=== PATIENT | female | born 1970 | race Caucasian/White ===

== ENCOUNTER 2016-09-17 13:14 | Emergency (ER) | payer OTHER ==
[~2016-09-17] VITALS: Ht 160 cm; Wt 82.5 kg
[~2016-09-17 13:14] MED LIST: ALBU8.5H3 INH; CETI10CA PO; CIPR500T4 PO; CYCL-319 PO; D-ME473S2 PO; DICY20TA59 PO; GUAI118L94 PO; HYDR-3498 PO; HYDR-902 PO; IBUP-1542 PO; IBUP800T25 PO; LORA1TAB PO; PHEN177S43 MT; PRED20TA PO; TRAM50TA2 PO
[2016-09-17 13:20] VITALS: Ht 160 cm; Wt 82.5 kg
[2016-09-17] MEDS ORDERED: ONDANSETRON (ODT) 4 MG TAB ODT STA (15:07)
[2016-09-17] MEDS ORDERED: HYDROCODONE/APAP (5/325) TAB PO ONE (15:30)
[2016-09-17 15:32] LABS: URINE BLOOD (Dip) POC 3+ (NEGATIVE)
--- NOTE | 2016-09-17 16:29 | RADRPT ---
PROCEDURE: US Pelvis CLINICAL INDICATION: PAIN BLEED TECHNIQUE: Multiple sonographic images of the pelvis were obtained utilizing a transabdominal and endovaginal technique. The images were reviewed on a PACS workstation. COMPARISON: Pelvic ultrasound from 11/04/2013 LMP: 09/15/2016 FINDINGS: The uterus measures 10.9 x 5.6 x 6.6 cm. The endometrial echo complex measures 4 mm in thickness. No discrete lesion is seen. The right ovary measures 2.1 x 1.5 x 1.7 cm. The left ovary measures 2.2 x 1.3 x 1.8 cm. There is no rmal vascular flow in both ovaries. No significant ovarian lesions are seen. There is trace pelvic free fluid. IMPRESSION: Unremarkable pelvic ultrasound, as above. RPTAT: EE Physician Charisma Date Time Electronically viewed and signed by Physician Charisma on 09/17/2016 16:28 /
[2016-09-17] MEDS ORDERED: HYDR-906 PO (16:57)
--- NOTE | 2016-09-17 17:01 | ERD ---
ER Documentation Chief Complaint Date/Time DATE: 09/17/16 TIME: 16:59 Chief Complaint ap, cramping on menses large bleeding reported HPI This 46-year-old female complains of some cramping in bleeding. She is on her menstrual period presumably. She denies fevers, vomiting, right or left-sided abdominal pain. She's not been regular for last few months. She denies . She denies any history of fibroids, additional pre-existing pelvic conditions. ROS All systems reviewed and are negative except as per history of present illness. Medications Home Meds Active Scripts Hydrocodone/Acetaminophen ([place] 5-325 Tablet) 1 Each Tablet, 1 TAB PO Q6H Y for PAIN, #12 TAB Prov:BOONE ESTRADA MD 09/17/16 Lorazepam* (Lorazepam*) 1 Mg Tablet, 1 MG PO Q8H, #10 TAB Prov:BERNARDA VALENTINO 04/10/16 Dicyclomine Hcl* (Bentyl*) 20 Mg Tablet, 20 MG PO QID, #30 TAB Prov:LEONARD VALERO DO 03/05/16 Hydrocodone/Acetaminophen ([place] 10-325 Tablet) 1 Each Tablet, 1 TAB PO Q6H Y for PAIN, #20 TAB Prov:LEONARD VALERO DO 03/05/16 Ciprofloxacin Hcl* (Ciprofloxacin Hcl*) 500 Mg Tablet, 500 MG PO BID for 7 Days , TAB Prov:LEONARD VALERO DO 03/05/16 Ibuprofen* (Motrin*) 600 Mg Tab, 600 MG PO Q6, #30 TAB Prov:HUA GRIJALVA 11/14/15 Phenol* (Chloraseptic* [place]) 177 Ml [place].pump, 2 SPRAY MT Q2H Y for SORE THROAT for 3 Days, BOTTLE Prov:HUA GRIJALVA 11/14/15 Dextromethorphan Hb-Promethazine Hcl* (Promethazine DM* Syrup) 473 Ml Syrup, 10 ML PO Q6 Y for COUGH for 5 Days, ML Prov:HUA GRIJALVA 11/14/15 Tramadol HCl (Tramadol HCl) 50 Mg Tablet, 50 MG PO Q4 Y for PAIN, #14 TAB Prov:CARMEN COLLINS PA-C 10/23/15 Prednisone* (Prednisone*) 20 Mg Tab, 40 MG PO DAILY for 5 Days, TAB Prov:CARMEN COLLINS PA-C 10/23/15 Ibuprofen* (Ibuprofen*) 600 Mg Tablet, 600 MG PO Q6, #20 TAB Prov:BOONE ESTRADA MD 09/14/15 Tramadol HCl (Tramadol HCl) 50 Mg Tablet, 50 MG PO Q4 Y for PAIN, #20 TAB Prov:BOONE ESTRADA MD 09/14/15 Hydrocodone Bit-Acetaminophen* ([place]*) 5-325 Mg Tab, 1 TAB PO Q6 Y for PAIN, # 7 TAB Prov:MICHELLE MAEYR DO 09/10/15 Ibuprofen* (Motrin*) 600 Mg Tab, 600 MG PO Q8, #20 TAB Prov:MICHELLE MAYER DO 09/10/15 Cyclobenzaprine Hcl* (Cyclobenzaprine Hcl*) 10 Mg Tablet, 10 MG PO TID Y for MUSCLE SPASMS, #15 TAB Prov:NATALIE DAMICO PA-C 09/02/15 Ibuprofen* (Motrin*) 800 Mg Tab, 800 MG PO Q6 Y for PAIN, #20 TAB Prov:NATALIE DAMICO PA-C 09/02/15 Cetirizine Hcl* (Zyrtec*) 10 Mg Capsule, 10 MG PO DAILY, #30 TAB.CHEW Prov:ASIM LEUNG NP 06/09/15 Ibuprofen* (Motrin*) 600 Mg Tab, 600 MG PO Q6H Y for PAIN AND OR ELEVATED TEMP, #30 TAB Prov:ASIM LEUNG NP 06/09/15 Guaifenesin-Codeine Phosphate* (Guaifenesin* with Codeine Liq) 120 Ml Liquid, 5 ML PO Q4H for COUGH, #60 ML Prov:ASIM LEUNG NP 06/09/15 Albuterol Sulfate* (Proair HFA*) 8.5 Gm Hfa.aer.ad, 2 PUFF INH Q4H Y for WHEEZING AND SOB, #1 INHALER Prov:ASIM LEUNG NP 06/09/15 Hydrocodone Bit-Acetaminophen* ([place]*) 5-325 Mg Tab, 1 TAB PO Q6 Y for PAIN, # 20 TAB Prov:ALIA SUH PA-C 05/06/15 Ibuprofen* (Motrin*) 800 Mg Tab, 800 MG PO Q6H Y for PAIN AND OR ELEVATED TEMP, #30 TAB Prov:ALIA SUH PA-C 05/06/15 Ibuprofen* (Motrin*) 600 Mg Tab, 600 MG PO Q6H Y for PAIN AND OR ELEVATED TEMP, #30 Prov:GISSEL MARISCAL MD 01/01/15 Ibuprofen* (Motrin*) 800 Mg Tab, 800 MG PO Q8 Y for PAIN AND OR ELEVATED TEMP, # 20 TAB Prov:LEONEL DHALIWAL 11/23/14 Allergies Allergies: Coded Allergies: No Known Allergy (Unverified , 11/14/15) PMhx/Soc History of Surgery: Yes (C SECTION X3 ) Anesthesia Reaction: No Hx Neurological Disorder: No Hx Respiratory Disorders: Yes (ASTHMA SYMPTOMS) Hx Cardiac Disorders: Yes (HTN ) Hx Psychiatric Problems: No Hx Miscellaneous Medical Probl: Yes (gallstones) Hx Alcohol Use: No Hx Substance Use: No Hx Tobacco Use: No Physical Exam Vitals Vital Signs Date Time Temp Pulse Resp B/P Pulse Ox O2 Delivery O2 Flow Rate FiO2 09/17/16 13:20 98.2 74 18 107/73 99 Physical Exam Const: [] Alert, not ill-appearing. Morbidly obese. Head: Atraumatic Eyes: Normal Conjunctiva ENT: Normal External Ears, Nose and Mouth. Neck: Full range of motion..~ No meningismus. Resp: Clear to auscultation bilaterally Cardio: Regular rate and rhythm, no murmurs Abd: Soft, minimal tenderness in the suprapubic area. No tenderness at McBurney's point no Ohara sign and no rebound., non distended. Normal bowel sounds Skin: No petechiae or rashes Back: No midline or flank tenderness Ext: No cyanosis, or edema Neur: Awake and alert Psych: Normal Mood and Affect Results 24 hrs Laboratory Tests Test 09/17/16 15:35 Bedside Urine pH (LAB) 5.5 Bedside Urine Protein (LAB) 2+ Bedside Urine Glucose (UA) Negative Bedside Urine Ketones (LAB) Trace Bedside Urine Blood 3+ Bedside Urine Nitrite (LAB) Negative Bedside Urine Leukocyte Esterase (L Negative Current Medications Medications (Trade) Dose Ordered Sig/Kahlil Route PRN Reason Start Time Stop Time Status Last Admin Dose Admin Acetaminophen/ Hydrocodone Bitart ([place] (5/325)) 1 tab ONCE ONCE PO 09/17/16 15:30 09/17/16 15:31 DC 09/17/16 15:26 Ondansetron HCl (Zofran Odt) 8 mg ONCE STAT ODT 09/17/16 15:07 09/17/16 15:09 DC 09/17/16 15:26 Procedures/MDM Pelvic ultrasound shows no acute abnormalities. Urine is negative for leukocytes , nitrites or glucose. HCG is negative. Patient was given [place] 5 mg by mouth. Patient since with pelvic pain and cramping and bleeding associated with presumably her menstrual period. She may be perimenopausal. There is no signs or symptoms suggestive of ovarian abscess, ovarian torsion, PID, additional symptoms. Urine will be sent for gonorrhea and chlamydia. Patient is advised to follow-up with primary care doctor this week or return to the ER for new or worsening symptoms. Departure Diagnosis: Primary Impression: Pelvic pain Condition: Stable Patient Instructions: Dysmenorrhea [facility] Usted se fletcher hecho un examen mdico de control que le indica que no est en martín condicin que requiera tratamiento urgente en el Departamento de Emergencia. Un estudio ms profundo y el tratamiento de browning condicin pueden esperar sin ningn riesgo hasta que usted sea atendida/o en el consultorio de browning mdico o martín cl deyanira. Es responsabilidad suya arreglar martín gurvinder para el seguimiento del beata. MANEJO DE CONDICIONES NO URGENTES EN EL FUTURO 1) Si usted tiene un mdico de atencin primaria: Usted debera llamar a browning mdico de atencin primaria antes de venir al departamento de emergencia. Despus de las horas de consultorio, browning doctor o browning asociado/a est disponible por telfono. El mdico o enfermero de dianna en el servicio telefnico puede asesorarle por mihir medio para atender el problema, o beata contrario se puede programar martín gurvinder. 2) Si usted no tiene un mdico de atencin primaria: Llame al mdico o clnica de referencia que aparece abajo kelly las horas de consultorio para hacer martín gurvinder para que le vean. CLINICAS: [facility] [phone] [facility] [phone] [address] [facility] [phone] [facility] [phone] [place] [phone] [facility] [phone] [address] Additional Instructions: Examines normal hoy. Cheque otro vez con browning doctor primario en el proximo roche or regresa para mas o nueva simptomas. BOONE ESTRADA MD September 17, 2016 17:01
== END 2016-09-17 17:29 | disposition home or self-care (01) ==
LOC: FTE 13:14
DX: R10.2 Pelvic and perineal pain (principal); I10 Essential (primary) hypertension; J45.909 Unspecified asthma, uncomplicated
CPT/HCPCS: 76830; 76856; 81003; Z7610

== ENCOUNTER 2016-11-26 02:04 | Emergency (ER) | payer OTHER ==
[~2016-11-26] VITALS: Ht 154.9 cm; Wt 85.0 kg
[~2016-11-26 02:04] MED LIST changes: +HYDR-906 PO
[2016-11-26 02:13] VITALS: Ht 154.9 cm; Wt 85.0 kg
--- NOTE | 2016-11-26 02:39 | ERA ---
ER Documentation Chief Complaint Date/Time DATE: 11/26/16 TIME: 02:39 Chief Complaint abdominal pain/vomiting x 4 hours HPI The patient is a 46-year-old female, presenting to the ER because of epigastric abdominal pain about 4 hours prior to arrival after eating greasy food. She has similar symptoms previously from gallbladder attack. She vomited couple times, initially initially foot then mucus. She denies fever, chills, neck pain , chest pain, dysuria, diarrhea. She does not smoke, drinks socially Past medical history: Cholelithiasis Past medical history: For ROS All systems reviewed and are negative except as per history of present illness. Medications Home Meds Active Scripts Hydrocodone/Acetaminophen ([place] 5-325 Tablet) 1 Each Tablet, 1 TAB PO Q6H Y for PAIN, #7 TAB Prov:DHEERAJ FALK MD 11/26/16 Ibuprofen* (Motrin*) 600 Mg Tab, 600 MG PO Q6, #30 TAB Prov:DHEERAJ FALK MD 11/26/16 Hydrocodone/Acetaminophen ([place] 5-325 Tablet) 1 Each Tablet, 1 TAB PO Q6H Y for PAIN, #12 TAB Prov:BOONE ESTRADA MD 09/17/16 Lorazepam* (Lorazepam*) 1 Mg Tablet, 1 MG PO Q8H, #10 TAB Prov:BERNARDA VALENTINO 04/10/16 Dicyclomine Hcl* (Bentyl*) 20 Mg Tablet, 20 MG PO QID, #30 TAB Prov:LEONARD VALERO DO 03/05/16 Hydrocodone/Acetaminophen ([place] 10-325 Tablet) 1 Each Tablet, 1 TAB PO Q6H Y for PAIN, #20 TAB Prov:JEWEL VLAEROSTJOÃO ASriram DO 03/05/16 Ciprofloxacin Hcl* (Ciprofloxacin Hcl*) 500 Mg Tablet, 500 MG PO BID for 7 Days , TAB Prov:LEONARD VALERO DO 03/05/16 Ibuprofen* (Motrin*) 600 Mg Tab, 600 MG PO Q6, #30 TAB Prov:HUA GRIJALVA 11/14/15 Phenol* (Chloraseptic* [place]) 177 Ml [place].pump, 2 SPRAY MT Q2H Y for SORE THROAT for 3 Days, BOTTLE Prov:HUA GRIJALVA 11/14/15 Dextromethorphan Hb-Promethazine Hcl* (Promethazine DM* Syrup) 473 Ml Syrup, 10 ML PO Q6 Y for COUGH for 5 Days, ML Prov:HUA GRIJALVA 11/14/15 Tramadol HCl (Tramadol HCl) 50 Mg Tablet, 50 MG PO Q4 Y for PAIN, #14 TAB Prov:CARMEN COLLINS PA-C 10/23/15 Prednisone* (Prednisone*) 20 Mg Tab, 40 MG PO DAILY for 5 Days, TAB Prov:CARMEN COLLINS PA-C 10/23/15 Ibuprofen* (Ibuprofen*) 600 Mg Tablet, 600 MG PO Q6, #20 TAB Prov:BOONE ESTRADA MD 09/14/15 Tramadol HCl (Tramadol HCl) 50 Mg Tablet, 50 MG PO Q4 Y for PAIN, #20 TAB Prov:BOONE ESTRADA MD 09/14/15 Hydrocodone Bit-Acetaminophen* ([place]*) 5-325 Mg Tab, 1 TAB PO Q6 Y for PAIN, # 7 TAB Prov:MICHELLE MAYER DO 09/10/15 Ibuprofen* (Motrin*) 600 Mg Tab, 600 MG PO Q8, #20 TAB Prov:MICHELLE MAYER DO 09/10/15 Cyclobenzaprine Hcl* (Cyclobenzaprine Hcl*) 10 Mg Tablet, 10 MG PO TID Y for MUSCLE SPASMS, #15 TAB Prov:NATALIE DAMICO PA-C 09/02/15 Ibuprofen* (Motrin*) 800 Mg Tab, 800 MG PO Q6 Y for PAIN, #20 TAB Prov:NATALIE DAMICO PA-C 09/02/15 Cetirizine Hcl* (Zyrtec*) 10 Mg Capsule, 10 MG PO DAILY, #30 TAB.CHEW Prov:ASIM LEUNG NP 06/09/15 Ibuprofen* (Motrin*) 600 Mg Tab, 600 MG PO Q6H Y for PAIN AND OR ELEVATED TEMP, #30 TAB Prov:ASIM LEUNG NP 06/09/15 Guaifenesin-Codeine Phosphate* (Guaifenesin* with Codeine Liq) 120 Ml Liquid, 5 ML PO Q4H for COUGH, #60 ML Prov:ASIM LEUNG NP 06/09/15 Albuterol Sulfate* (Proair HFA*) 8.5 Gm Hfa.aer.ad, 2 PUFF INH Q4H Y for WHEEZING AND SOB, #1 INHALER Prov:ASIM LEUNG NP 06/09/15 Hydrocodone Bit-Acetaminophen* ([place]*) 5-325 Mg Tab, 1 TAB PO Q6 Y for PAIN, # 20 TAB Prov:ALIA SUH PA-C 05/06/15 Ibuprofen* (Motrin*) 800 Mg Tab, 800 MG PO Q6H Y for PAIN AND OR ELEVATED TEMP, #30 TAB Prov:ALIA SUH PA-C 05/06/15 Ibuprofen* (Motrin*) 600 Mg Tab, 600 MG PO Q6H Y for PAIN AND OR ELEVATED TEMP, #30 Prov:GISSEL MARISCAL MD 01/01/15 Ibuprofen* (Motrin*) 800 Mg Tab, 800 MG PO Q8 Y for PAIN AND OR ELEVATED TEMP, # 20 TAB Prov:LEONEL DHALIWAL 11/23/14 Allergies Allergies: Coded Allergies: No Known Allergy (Unverified , 11/26/16) PMhx/Soc History of Surgery: Yes (C SECTION X3 ) Anesthesia Reaction: No Hx Neurological Disorder: No Hx Respiratory Disorders: Yes (ASTHMA SYMPTOMS) Hx Cardiac Disorders: Yes (HTN ) Hx Psychiatric Problems: No Hx Miscellaneous Medical Probl: Yes (gallstones) Hx Alcohol Use: No Hx Substance Use: No Hx Tobacco Use: No Physical Exam Vitals Vital Signs Date Time Temp Pulse Resp B/P Pulse Ox O2 Delivery O2 Flow Rate FiO2 11/26/16 03:00 97.8 65 18 142/96 100 Room Air 11/26/16 02:13 97.8 74 20 144/77 100 Physical Exam Const: No acute distress. Head: Atraumatic. Eyes: Normal Conjunctiva. ENT: Normal External Ears, Nose and Mouth. Neck: Full range of motion. No meningismus. Resp: Clear to auscultation bilaterally. Cardio: Regular rate and rhythm. Abd: Soft, non distended, normal bowel sounds, mild epigastric and right upper quadrant tenderness, no right lower quadrant, CVA tenderness, rigidity, rebound tenderness Skin: No petechiae or rashes. Back: No midline or flank tenderness. Ext: No cyanosis, or edema. Neur: Awake and alert. No focal deficit Psych: Normal Mood and Affect. Result Diagram: 11/26/16 03011/26/16 030 Results 24 hrs Laboratory Tests Test 11/26/16 03:00 11/26/16 03:31 White Blood Count 8.210^3/ul Red Blood Count 4.4710^6/ul Hemoglobin 12.9g/dl Hematocrit 37.8% Mean Corpuscular Volume 84.6fl Mean Corpuscular Hemoglobin 28.9pg Mean Corpuscular Hemoglobin Concent 34.1g/dl Red Cell Distribution Width 12.1% Platelet Count 84632^3/UL Mean Platelet Volume 12.2fl Neutrophils % 52.3% Lymphocytes % 36.3% Monocytes % 7.6% Eosinophils % 2.9% Basophils % 0.2% Nucleated Red Blood Cells % 0.0/100WBC Neutrophils # 4.310^3/ul Lymphocytes # 3.010^3/ul Monocytes # 0.610^3/ul Eosinophils # 0.210^3/ul Basophils # 0.010^3/ul Nucleated Red Blood Cells # 0.010^3/ul Sodium Level 145mmol/L Potassium Level 5.0mmol/L Chloride Level 107mmol/L Carbon Dioxide Level 25mmol/L Anion Gap 18 Blood Urea Nitrogen 17mg/dl Creatinine 0.88mg/dl Glucose Level 96mg/dl Calcium Level 9.3mg/dl Total Bilirubin 0.2mg/dl Direct Bilirubin 0.00mg/dl Indirect Bilirubin 0.2mg/dl Aspartate Amino Transf (AST/SGOT) 51IU/L Alanine Aminotransferase (ALT/SGPT) 77IU/L Alkaline Phosphatase 80IU/L Total Protein 7.7g/dl Albumin 4.3g/dl Globulin 3.40g/dl Albumin/Globulin Ratio 1.26 Lipase 104U/L Bedside Urine pH (LAB) 7.0 Bedside Urine Protein (LAB) Negative Bedside Urine Glucose (UA) Negative Bedside Urine Ketones (LAB) Negative Bedside Urine Blood Trace-intact Bedside Urine Nitrite (LAB) Negative Bedside Urine Leukocyte Esterase (L Negative Current Medications Medications (Trade) Dose Ordered Sig/Kahlil Route PRN Reason Start Time Stop Time Status Last Admin Dose Admin Morphine Sulfate (morphine) 4 mg ONCE STAT IV 11/26/16 02:44 11/26/16 02:46 DC 11/26/16 02:58 Ondansetron HCl 4 mg 4 mg ONCE STAT IV 11/26/16 02:44 11/26/16 02:46 DC 11/26/16 02:58 Sodium Chloride (NS) 1,000 ml @ 1,000 mls/hr Q1H ONCE IV 11/26/16 03:00 11/26/16 03:59 DC 11/26/16 02:57 Procedures/MDM MEDICAL MAKING DECISION: The patient is a 46-year-old female, presenting with acute biliary colic. She was treated with 1 L normal saline for clinical dehydration, morphine 4 mg IV for pain, Zofran 4 IV for nausea with good response. The differential diagnoses considered include but are not limited to cholelithiasis, cholecystitis, cystitis, pancreatitis, hepatitis, gastritis, peptic ulcer disease, gastric ulcer, appendicitis, diverticulitis, cholangitis, choledocholithiasis, partial small bowel obstruction. Departure Diagnosis: Primary Impression: Biliary colic Additional Impression: Transaminitis Condition: Good Comments She was discharged with Motrin and [place] I discussed the findings with the patient. I advised the patient to follow-up with the primary physician in about 1-2 days for reevaluation and referral to general surgery for elective cholecystectomy, sooner if needed and return if any concern. The patient's blood pressure was elevated (>120/80) but appears stable without evidence of hypertension emergency or urgency. The patient was counseled about the risks of hypertension and urged to pursue outpatient monitoring and therapy within a week with their primary care physician. DHEERAJ FALK MD Nov 26, 2016 02:39
[2016-11-26] MEDS ORDERED: morphine 4 MG/ML VIAL IV STA (02:44)
[2016-11-26] MEDS ORDERED: ONDANSETRON 4 MG INJ IV STA (02:44)
[2016-11-26] MEDS ORDERED: SOD CHLORIDE 0.9% 1,000 ML IV ONE (03:00)
[2016-11-26 03:17] LABS: BASOPHILS % 0.2 % (0.0-2.0); EOSINOPHILS # 0.2 10^3/ul (0.0-0.5); EOSINOPHILS % 2.9 % (0.0-7.0); HEMATOCRIT 37.8 % (37.0-47.0); HEMOGLOBIN 12.9 g/dl (12.0-16.0); LYMPHOCYTES % 36.3 % (15.0-51.0); MEAN CORPUSCULAR HEMOGLOBIN 28.9 pg (29.0-33.0); MEAN CORPUSCULAR HGB CONC 34.1 g/dl (32.0-37.0); MEAN CORPUSCULAR VOLUME 84.6 fl (82.0-101.0); MEAN PLATELET VOLUME 12.2 fl (7.4-10.4); MONOCYTE # 0.6 10^3/ul (0.3-0.9); MONOCYTES % 7.6 % (0.0-11.0); NEUTROPHIL # 4.3 10^3/ul (1.6-7.5); NEUTROPHILS % 52.3 % (39.0-77.0); RED BLOOD COUNT 4.47 10^6/ul (4.20-5.40); RED CELL DISTRIBUTION WIDTH 12.1 % (11.5-14.5); WHITE BLOOD COUNT 8.2 10^3/ul (4.8-10.8)
[2016-11-26 03:23] LABS: POSITIVE DIFF @See below
[2016-11-26 03:25] LABS: URINE BLOOD (Dip) POC Trace-intact (NEGATIVE)
[2016-11-26 03:36] LABS: ALBUMIN 4.3 g/dl (3.3-4.9); ALBUMIN/GLOBULIN RATIO 1.26; BILIRUBIN,INDIRECT 0.2 mg/dl (0-1.1); BILIRUBIN,TOTAL 0.2 mg/dl (0.2-1.3); CALCIUM 9.3 mg/dl (8.4-10.2); CREATININE 0.88 mg/dl (0.44-1.00); TOTAL PROTEIN 7.7 g/dl (6.1-8.1)
[2016-11-26 03:52] LABS: PLATELET COUNT 131 10^3/UL (140-415)
[2016-11-26] MEDS ORDERED: HYDR-906 PO (04:05)
[2016-11-26] MEDS ORDERED: IBUP-1542 PO (04:05)
[2016-11-26 04:30] VITALS: BP 140/76; PULSE 68; RESP 18; TEMP 97.8
== END 2016-11-26 04:45 | disposition home or self-care (01) ==
LOC: E/R 02:04
DX: K80.50 Calculus of bile duct without cholangitis or cholecystitis without obstruction (principal); R74.0 Nonspecific elevation of levels of transaminase and lactic acid dehydrogenase [LDH]; I10 Essential (primary) hypertension
CPT/HCPCS: 36415; 80053; 81003; 83690; 85025; 96374; 96375; J2270; J2405; J7030; Z7502

== ENCOUNTER 2016-12-24 23:38 | Emergency (ER) | payer OTHER ==
[~2016-12-24] VITALS: Ht 157.5 cm; Wt 84.0 kg
[2016-12-25] VITALS: Ht 157.5 cm; Wt 84.0 kg
[2016-12-25] MEDS ORDERED: ONDANSETRON (ODT) 4 MG TAB ODT STA (00:44)
[2016-12-25] MEDS ORDERED: HYDROCODONE/APAP (10/325) TAB PO ONE (01:00)
--- NOTE | 2016-12-25 01:04 | ERD ---
ER Documentation Chief Complaint Date/Time DATE: 12/25/16 TIME: 01:03 Chief Complaint Vaginal bleeding HPI 46-year-old femaleOtherwise healthy presents with pelvic cramping with vaginal bleeding that started today. She describes as pressure-like, achy, moderate to severe fear and not improving with ibuprofen. She denies fevers chills, nausea , vomiting. She denies dizziness. ROS All systems reviewed and are negative except as per history of present illness. Medications Home Meds Active Scripts Medroxyprogesterone Acetate* (Provera*) 10 Mg Tablet, 10 MG PO DAILY for 7 Days , TAB Prov:CARMEN COLLINS PA-C 12/25/16 Ibuprofen* (Motrin*) 600 Mg Tab, 600 MG PO Q6, #30 TAB Prov:CARMEN COLLINS PA-C 12/25/16 Hydrocodone/Acetaminophen ([place] 5-325 Tablet) 1 Each Tablet, 1 TAB PO Q6H Y for PAIN, #7 TAB Prov:CARMEN COLLINS PA-C 12/25/16 Hydrocodone/Acetaminophen ([place] 5-325 Tablet) 1 Each Tablet, 1 TAB PO Q6H Y for PAIN, #7 TAB Prov:DHEERAJ FALK MD 11/26/16 Ibuprofen* (Motrin*) 600 Mg Tab, 600 MG PO Q6, #30 TAB Prov:DHEERAJ FALK MD 11/26/16 Hydrocodone/Acetaminophen ([place] 5-325 Tablet) 1 Each Tablet, 1 TAB PO Q6H Y for PAIN, #12 TAB Prov:BOONE ESTRADA MD 09/17/16 Lorazepam* (Lorazepam*) 1 Mg Tablet, 1 MG PO Q8H, #10 TAB Prov:BERNARDA VALENTINO 04/10/16 Dicyclomine Hcl* (Bentyl*) 20 Mg Tablet, 20 MG PO QID, #30 TAB Prov:LEONARD VALERO DO 03/05/16 Hydrocodone/Acetaminophen ([place] 10-325 Tablet) 1 Each Tablet, 1 TAB PO Q6H Y for PAIN, #20 TAB Prov:LEONARD VALERO DO 03/05/16 Ciprofloxacin Hcl* (Ciprofloxacin Hcl*) 500 Mg Tablet, 500 MG PO BID for 7 Days , TAB Prov:LEONARD VALERO DO 03/05/16 Ibuprofen* (Motrin*) 600 Mg Tab, 600 MG PO Q6, #30 TAB Prov:VALENTINEHUA LEVINE Faviola 11/14/15 Phenol* (Chloraseptic* [place]) 177 Ml [place].pump, 2 SPRAY MT Q2H Y for SORE THROAT for 3 Days, BOTTLE Prov:HUA GRIJALVA Faviola 11/14/15 Dextromethorphan Hb-Promethazine Hcl* (Promethazine DM* Syrup) 473 Ml Syrup, 10 ML PO Q6 Y for COUGH for 5 Days, ML Prov:VALENTINEMARIOLAHUA C 11/14/15 Tramadol HCl (Tramadol HCl) 50 Mg Tablet, 50 MG PO Q4 Y for PAIN, #14 TAB Prov:CARMEN COLLINS PA-C 10/23/15 Prednisone* (Prednisone*) 20 Mg Tab, 40 MG PO DAILY for 5 Days, TAB Prov:CARMEN COLLINS PA-C 10/23/15 Ibuprofen* (Ibuprofen*) 600 Mg Tablet, 600 MG PO Q6, #20 TAB Prov:BOONE ESTRADA MD 09/14/15 Tramadol HCl (Tramadol HCl) 50 Mg Tablet, 50 MG PO Q4 Y for PAIN, #20 TAB Prov:BOONE ESTRADA MD 09/14/15 Hydrocodone Bit-Acetaminophen* ([place]*) 5-325 Mg Tab, 1 TAB PO Q6 Y for PAIN, # 7 TAB Prov:MICHELLE MAYER DO 09/10/15 Ibuprofen* (Motrin*) 600 Mg Tab, 600 MG PO Q8, #20 TAB Prov:MICHELLE MAYER DO 09/10/15 Cyclobenzaprine Hcl* (Cyclobenzaprine Hcl*) 10 Mg Tablet, 10 MG PO TID Y for MUSCLE SPASMS, #15 TAB Prov:NATALIE DAMICO PA-C 09/02/15 Ibuprofen* (Motrin*) 800 Mg Tab, 800 MG PO Q6 Y for PAIN, #20 TAB Prov:NATALIE DAMICO PA-C 09/02/15 Cetirizine Hcl* (Zyrtec*) 10 Mg Capsule, 10 MG PO DAILY, #30 TAB.CHEW Prov:ASIM LEUNG NP 06/09/15 Ibuprofen* (Motrin*) 600 Mg Tab, 600 MG PO Q6H Y for PAIN AND OR ELEVATED TEMP, #30 TAB Prov:ASIM LEUNG COFFEE FARMER 06/09/15 Guaifenesin-Codeine Phosphate* (Guaifenesin* with Codeine Liq) 120 Ml Liquid, 5 ML PO Q4H for COUGH, #60 ML Prov:ASIM LEUNG COFFEE FARMER 06/09/15 Albuterol Sulfate* (Proair HFA*) 8.5 Gm Hfa.aer.ad, 2 PUFF INH Q4H Y for WHEEZING AND SOB, #1 INHALER Prov:ASIM LEUNG COFFEE FARMER 06/09/15 Hydrocodone Bit-Acetaminophen* ([place]*) 5-325 Mg Tab, 1 TAB PO Q6 Y for PAIN, # 20 TAB Prov:ALIA SUH PA-C 05/06/15 Ibuprofen* (Motrin*) 800 Mg Tab, 800 MG PO Q6H Y for PAIN AND OR ELEVATED TEMP, #30 TAB Prov:ALIA SUH PA-C 05/06/15 Ibuprofen* (Motrin*) 600 Mg Tab, 600 MG PO Q6H Y for PAIN AND OR ELEVATED TEMP, #30 Prov:GISSEL MARISCAL MD 01/01/15 Ibuprofen* (Motrin*) 800 Mg Tab, 800 MG PO Q8 Y for PAIN AND OR ELEVATED TEMP, # 20 TAB Prov:LEONEL DHALIWAL 11/23/14 Allergies Allergies: Coded Allergies: No Known Allergy (Unverified , 11/26/16) PMhx/Soc History of Surgery: Yes () Anesthesia Reaction: No Hx Neurological Disorder: No Hx Respiratory Disorders: Yes (Asthma) Hx Cardiac Disorders: Yes (HTN ) Hx Psychiatric Problems: No Hx Miscellaneous Medical Probl: Yes (Gallstones) Hx Alcohol Use: No Hx Substance Use: No Hx Tobacco Use: No Physical Exam Vitals Vital Signs Date Time Temp Pulse Resp B/P Pulse Ox O2 Delivery O2 Flow Rate FiO2 12/25/16 03:52 98.3 69 18 112/73 99 Room Air 12/25/16 00:00 98.7 84 20 134/96 100 Physical Exam General: Well-developed, well-nourished. The patient appears in no acute distress. HEENT: Head is normocephalic, atraumatic. No scleral icterus. Pupils are equal , round, and reactive. Oral mucous membranes are moist. No pharyngeal erythema. Neck: Supple. Nontender. Lungs: Clear to auscultation. Normal air movement. Heart: Regular rate and rhythm. S1 and S2 are normal. No murmurs, gallops, or rubs. Abdomen: Soft, nontender, nondistended. Bowel sounds are normoactive. Extremities: No clubbing or cyanosis. Normal pulses. Moving extremities x 4. No weakness. Neurologic: Alert and oriented 3. No focal deficits. Skin: Normal turgor. No rash or lesions. Result Diagram: 12/25/16 0133 12/25/16 0133 Results 24 hrs Laboratory Tests Test 12/25/16 01:33 12/25/16 03:16 White Blood Count 13.410^3/ul Red Blood Count 4.7510^6/ul Hemoglobin 13.8g/dl Hematocrit 40.4% Mean Corpuscular Volume 85.1fl Mean Corpuscular Hemoglobin 29.1pg Mean Corpuscular Hemoglobin Concent 34.2g/dl Red Cell Distribution Width 12.0% Platelet Count 40294^3/UL Mean Platelet Volume 11.3fl Neutrophils % 84.6% Lymphocytes % 10.0% Monocytes % 4.0% Eosinophils % 0.7% Basophils % 0.2% Nucleated Red Blood Cells % 0.0/100WBC Neutrophils # (Manual) 11.310^3/ul Lymphocytes # 1.310^3/ul Monocytes # 0.510^3/ul Eosinophils # 0.110^3/ul Basophils # 0.010^3/ul Nucleated Red Blood Cells # 0.010^3/ul Sodium Level 138mmol/L Potassium Level 4.8mmol/L Chloride Level 99mmol/L Carbon Dioxide Level 27mmol/L Anion Gap 17 Blood Urea Nitrogen 16mg/dl Creatinine 0.84mg/dl Glucose Level 114mg/dl Calcium Level 9.7mg/dl Total Bilirubin 0.6mg/dl Direct Bilirubin 0.00mg/dl Indirect Bilirubin 0.6mg/dl Aspartate Amino Transf (AST/SGOT) 35IU/L Alanine Aminotransferase (ALT/SGPT) 45IU/L Alkaline Phosphatase 88IU/L Total Protein 8.7g/dl Albumin 4.4g/dl Globulin 4.30g/dl Albumin/Globulin Ratio 1.02 Bedside Urine pH (LAB) >=9.0 Bedside Urine Protein (LAB) 2+ Bedside Urine Glucose (UA) Negative Bedside Urine Ketones (LAB) Trace Bedside Urine Blood 3+ Bedside Urine Nitrite (LAB) Negative Bedside Urine Leukocyte Esterase (L Trace Current Medications Medications (Trade) Dose Ordered Sig/Kahlil Route PRN Reason Start Time Stop Time Status Last Admin Dose Admin Acetaminophen/ Hydrocodone Bitart ([place] (10/325)) 1 tab ONCE ONCE PO 12/25/16 01:00 12/25/16 01:01 DC 12/25/16 01:40 Ondansetron HCl (Zofran Odt) 4 mg ONCE STAT ODT 12/25/16 00:44 12/25/16 00:46 DC 12/25/16 01:40 DIAGNOSTIC IMAGING REPORT Patient: ALEKS HAYES : 1970 Age: 46 Sex: F MR #: [id number] DOS: 12/25/16 0044 Ordering MD: CARMEN COLLINS PA-C Location: [facility] Room/Bed: PROCEDURE: Ultrasound of the pelvis. CLINICAL INDICATION: Pain TECHNIQUE: Transabdominal and transvaginal ultrasound of the pelvis was performed to better evaluate the pelvic viscera. COMPARISON: No pertinent prior examinations were submitted for comparison. FINDINGS: LAST MENSTRUAL PERIOD: Unavailable UTERUS: Size: 9.7 x 5.2 x 6.9 cm. The uterine texture is homogeneous. The endometrium measures 20 mm which is thickened. The endometrium is heterogeneous. Some heterogeneous material is noted within the endocervical canal. RIGHT OVARY: The ovary is not visualized. No adnexal masses are seen. LEFT OVARY: The ovary is not visualized. No adnexal masses are seen. CUL-DE-SAC: There is no abnormal free fluid. IMPRESSION: Heterogeneously echogenic material within the endometrium and endocervical canal likely due to clot. No evidence of ovarian torsion. RPTAT: HIKT .Alfa Llanos MD, MD Date Time Electronically viewed and signed by .Alfa Llanos MDMD on 12/25/2016 01:57 .T/ CC: CARMEN COLLINS PA-C Procedures/MDM ED course: Patient had labs and urine, as well as an ultrasound obtained. Medical decision makin-year-old female presents with pelvic pain, vaginal bleeding 1 day, Patient's pelvic ultrasound does not show evidence of any ovarian mass, uterine fibroids or uterine masses. There is a thickened endometrium, patient will be started on Provera for symptomatic treatment. She was given [place] in emergency department and has significant improvement of her pain. Patient's urine was negative, I doubt ectopic . Other differentials considered include ovarian torsion, PID, cervicitis, acute appendicitis, bowel obstruction, diverticulitis and among others. She was given a copy of her ultrasound as well as her lab work, she was asked to follow- up with GEODETIC COMPUTATOR. Departure Diagnosis: Primary Impression: Vaginal bleeding Condition: Good (ERASED) CARMEN COLLINS PA-C Dec 25, 2016 01:04
[2016-12-25 01:48] LABS: BASOPHILS % 0.2 % (0.0-2.0); EOSINOPHILS # 0.1 10^3/ul (0.0-0.5); EOSINOPHILS % 0.7 % (0.0-7.0); HEMATOCRIT 40.4 % (37.0-47.0); HEMOGLOBIN 13.8 g/dl (12.0-16.0); LYMPHOCYTES # 1.3 10^3/ul (0.8-2.9); MEAN CORPUSCULAR HEMOGLOBIN 29.1 pg (29.0-33.0); MEAN CORPUSCULAR HGB CONC 34.2 g/dl (32.0-37.0); MEAN CORPUSCULAR VOLUME 85.1 fl (82.0-101.0); MEAN PLATELET VOLUME 11.3 fl (7.4-10.4); MONOCYTE # 0.5 10^3/ul (0.3-0.9); NEUTROPHILS % 84.6 % (39.0-77.0); PLATELET COUNT 206 10^3/UL (140-415); RED BLOOD COUNT 4.75 10^6/ul (4.20-5.40); WHITE BLOOD COUNT 13.4 10^3/ul (4.8-10.8)
--- NOTE | 2016-12-25 01:58 | RADRPT ---
PROCEDURE: Ultrasound of the pelvis. CLINICAL INDICATION: Pain TECHNIQUE: Transabdominal and transvaginal ultrasound of the pelvis was performed to better evalua te the pelvic viscera. COMPARISON: No pertinent prior examinations were submitted for comparison. FINDINGS: LAST MENSTRUAL PERIOD: Unavailable UTERUS: Size: 9.7 x 5.2 x 6.9 cm. The uterine texture is homogeneous. The endometrium measures 20 mm which i s thickened. The endometrium is heterogeneous. Some heterogeneous material is noted within the endo cervical canal. RIGHT OVARY: The ovary is not visualized. No adnexal masses are seen. LEFT OVARY: The ovary is not visualized. No adnexal masses are seen. CUL-DE-SAC: There is no abnormal free fluid. IMPRESSION: Heterogeneously echogenic material within the endometrium and endocervical canal likely due to clot. No evidence of ovarian torsion. RPTAT: HIKT .Alfa Llanos MD, Date Time Electronically viewed and signed by .Alfa Llanos MD, on 12/25/2016 01:57 .T/
[2016-12-25 02:12] LABS: ALBUMIN 4.4 g/dl (3.3-4.9); ALBUMIN/GLOBULIN RATIO 1.02; BILIRUBIN,INDIRECT 0.6 mg/dl (0-1.1); BILIRUBIN,TOTAL 0.6 mg/dl (0.2-1.3); CALCIUM 9.7 mg/dl (8.4-10.2); CREATININE 0.84 mg/dl (0.44-1.00); POTASSIUM 4.8 mmol/L (3.5-5.1); TOTAL PROTEIN 8.7 g/dl (6.1-8.1)
[2016-12-25 03:10] LABS: URINE BLOOD (Dip) POC 3+ (NEGATIVE)
[2016-12-25] MEDS ORDERED: MEDR10TA2 PO (03:32)
[2016-12-25] MEDS ORDERED: IBUP-1542 PO (03:32)
[2016-12-25] MEDS ORDERED: HYDR-906 PO (03:32)
[2016-12-25 03:52] VITALS: BP 112/73; PULSE 69; RESP 18; TEMP 98.3
== END 2016-12-25 03:52 | disposition home or self-care (01) ==
LOC: FTE 23:38
DX: N93.9 Abnormal uterine and vaginal bleeding, unspecified (principal); I10 Essential (primary) hypertension; J45.909 Unspecified asthma, uncomplicated; R10.2 Pelvic and perineal pain
CPT/HCPCS: 36415; 76830; 76856; 80053; 81003; 85025; Z7502; Z7610

== ENCOUNTER 2017-05-18 05:50 | Emergency (ER) | END 2017-05-18 08:16 | disposition home or self-care (01) ==

== ENCOUNTER 2017-05-31 22:46 | Emergency (ER) | END 2017-06-01 01:50 | disposition home or self-care (01) ==

== ENCOUNTER 2017-12-25 10:02 | Inpatient (IN) | END 2017-12-26 20:48 | disposition home or self-care (01) | DRG 419 ==

== ENCOUNTER 2018-02-24 14:35 | Emergency (ER) | END 2018-02-24 15:25 | disposition home or self-care (01) ==

== ENCOUNTER 2018-04-26 08:18 | Emergency (ER) | END 2018-04-26 09:01 | disposition home or self-care (01) ==

== ENCOUNTER 2018-05-16 05:50 | Emergency (ER) | payer OTHER ==
[~2018-05-16] VITALS: Ht 154.9 cm; Wt 84.0 kg
[~2018-05-16 05:50] MED LIST changes: +ACET325T33 PO; -ALBU8.5H3 INH; +AZIT250T PO; +BEN25 PO; +BENZ-6 PO; -CETI10CA PO; -CIPR500T4 PO; -CYCL-319 PO; -D-ME473S2 PO; -DICY20TA59 PO; -GUAI118L94 PO; -HYDR-3498 PO; +HYDR-3601 PO; -HYDR-902 PO; -HYDR-906 PO; -IBUP800T25 PO; -LORA1TAB PO; -PHEN177S43 MT; -PRED20TA PO; +SENOKOTS PO; -TRAM50TA2 PO
[2018-05-16 05:55] VITALS: BP 113/82; PULSE 77; RESP 18; Ht 154.9 cm; Wt 84.0 kg
[2018-05-16] MEDS ORDERED: KETOROLAC 60 MG INJ IM STA (06:25)
[2018-05-16] MEDS ORDERED: MED4DP PO (06:29)
[2018-05-16] MEDS ORDERED: HYDR-4011 PO (06:29)
[2018-05-16] MEDS ORDERED: NAPR-985 PO (06:29)
--- NOTE | 2018-05-16 08:11 | ERD ---
ER Documentation Chief Complaint Chief Complaint C/O ON AND OFF RT ARM PAIN AND TINGLING X3 DAYS, DENIES ANY INJURY HPI 47-year-old female presenting with pain down her right arm. She describes it as numbness and tingling. She states that it is a dull aching pain. She does have some neck pain. She has not taken medication for symptoms. Denies any chest pain or shortness of breath. Is right-hand dominant. Denies other medical problems. NKDA. Surgical history denies. Social history denies ROS All systems reviewed and are negative except as per history of present illness. Medications Home Meds Active Scripts Naproxen* (Naprosyn*) 500 Mg Tablet, 500 MG PO BID PRN for PAIN AND/OR INFLAMMATION, #30 TAB Prov:CRISTY COTTO PA-C 05/16/18 Hydrocodone/Acetaminophen ([place] 5-325 Tablet) 1 Each Tablet, 1 TAB PO Q6H PRN for PAIN, #7 TAB Prov:CRISTY COTTO PA-C 05/16/18 Methylprednisolone* (Medrol* DOSE PACK) 4 Mg/Dose-Pack Tab.ds.pk, 4 MG PO . DIRECTED, #1 PACKET Prov:CRISTY COTTO PA-C 05/16/18 Acetaminophen* (Tylenol*) 325 Mg Tablet, 2 TAB PO Q4 PRN for PAIN AND OR ELEVATED TEMP, #30 TAB Prov:ESTEFANY SEALS PA-C 04/26/18 Diphenhydramine Hcl* (Benadryl*) 25 Mg Cap, 25 MG PO Q6 PRN for ITCHING/RASH, #30 TAB Prov:ESTEFANY SEALS PA-C 04/26/18 Benzonatate* (Tessalon Perle*) 100 Mg Capsule, 100 MG PO Q8H PRN for COUGH, #30 CAP Prov:ESTEFANY SEALS PA-C 04/26/18 Ibuprofen* (Motrin*) 600 Mg Tab, 600 MG PO Q6, #30 TAB Prov:KIMBERLY SMITH PA-C 02/24/18 Benzonatate* (Tessalon Perle*) 100 Mg Capsule, 100 MG PO Q8H PRN for COUGH for 15 Days, #20 CAP Prov:SARAHKIMBERLY PA-C 02/24/18 Azithromycin* (Zithromax*) 250 Mg Tablet, 250 MG PO .ZPACK DIRECTED, #6 TAB TAKE 500 MG (2 TABS) THE FIRST DAY THEN 250 MG (1 TAB) DAYS 2-5 Prov:SARAHKIMBERLY PA-C 02/24/18 Hydrocodone Bit-Acetaminophen (Hydrocodone Bit-APAP) 5-325MG Tablet, 2 TAB PO Q4H PRN for SEVERE PAIN LEVEL 7-10, #30 TAB Prov:POLA IVAN 12/26/17 Sennosides/Docusate Sodium (Dok Plus Tablet) 1 Each Tablet, 2 TAB PO BID PRN for CONSTIPATION, #60 TAB Prov:POLA IVAN 12/26/17 Reported Medications Ibuprofen* (Ibuprofen*) 600 Mg Tablet, 600 MG PO Q6H PRN for PAIN LEVEL 6-10, TAB 12/25/17 Allergies Allergies: Coded Allergies: No Known Allergy (Unverified , 06/01/17) PMhx/Soc History of Surgery: Yes ( X 3,LIZBETH) Anesthesia Reaction: Yes Hx Neurological Disorder: No Hx Respiratory Disorders: No Hx Cardiac Disorders: No Hx Psychiatric Problems: No Hx Miscellaneous Medical Probl: No Hx Alcohol Use: Yes (OCCASIONALLY) Hx Substance Use: No Hx Tobacco Use: No Smoking Status: Never smoker FmHx Family History: No diabetes, No coronary disease, No other Physical Exam Vitals Vital Signs Date Temp Pulse Resp B/P (MAP) Pulse Ox O2 O2 Flow FiO2 Time Delivery Rate 05/16/18 97.6 77 18 113/82 96 05:55 (92) Physical Exam GENERAL: The patient is well-appearing, well-nourished, in no acute distress NECK: C-spine is soft and supple. There is no meningismus. There is no cervical lymphadenopathy. CHEST: Clear to auscultation bilaterally. There are no rales, wheezes or rhonchi. HEART: Regular rate and rhythm. No murmurs, clicks, rubs or gallops. No S3 or S4. EXTREMITIES: Equal pulses bilaterally. There is no peripheral clubbing, cyanosis or edema. No focal swelling or erythema. Full range of motion. Grossly neurovascularly intact. NEUROLOGIC: Alert and oriented. Cranial nerves II through XII intact. Motor strength in all 4 extremities with 5 out of 5 strength. Sensation grossly intact. Normal speech and gait. Babinski negative. DTR 2+ throughout. SKIN: There is no apparent rash or petechiae. The skin is warm and dry. Results 24 hrs Laboratory Tests Test 05/16/18 06:39 POC Beta HCG, Qualitative NEGATIVE Current Medications Medications Dose Sig/Kahlil Start Time Status Last (Trade) Ordered Route PRN Stop Time Admin Dose Reason Admin Ketorolac 60 mg ONCE STAT 05/16/18 DC 05/16/18 Tromethamine IM 06:25 06:46 (Toradol) 05/16/18 06:27 Procedures/MDM ER course: Toradol given ED. MDM: 47-year-old female presenting with neck pain. Patient has some arm pain. Patient likely has cervical radiculopathy will be discharged with supportive medications. Patient is told if symptoms change or worsen to immediately return to the ER. I have low suspicion for cardiac or pulmonary emergency. I have low suspicion for acute fracture or dislocation. All questions answered at discharge Departure Diagnosis: Primary Impression: Cervical radicular pain Condition: Stable Patient Instructions: Radiculopathy, Cervical Referrals: BRADLEY RAJAN MD (PCP) Additional Instructions: FOLLOW UP WITH YOUR PRIMARY CARE PHYSICIAN TOMORROW.Return to this facility if you are not improving as expected. CRISTY COTTO PA-C May 16, 2018 08:11
== END 2018-05-16 06:56 | disposition home or self-care (01) ==
LOC: FTE 05:50
DX: M54.12 Radiculopathy, cervical region (principal)
CPT/HCPCS: 81025; 90472; J1885; Z7502

== ENCOUNTER 2018-07-20 04:50 | Emergency (ER) | payer OTHER ==
[~2018-07-20] VITALS: Wt 82.0 kg
[~2018-07-20 04:50] MED LIST changes: +HYDR-4011 PO; +MED4DP PO; +NAPR-985 PO
[2018-07-20 04:52] VITALS: BP 129/84; PULSE 76; RESP 18
[2018-07-20] MEDS ORDERED: IBUP800T48 PO (05:39)
--- NOTE | 2018-07-20 05:41 | ERD ---
ER Documentation Chief Complaint Chief Complaint AP, EPISTAXIS, HEMATEMESIS HPI 48-year-old female no significant past medical history who presents to the emergency room with 1-2 episodes of scant epistaxis. The patient has been using the heat at home at night and she notes that a couple of times she has had some scant bleeding from her nose. Initially she thought that she had hematemesis but she states that it was just spitting up a little blood when she had a nosebleed. She has no further bleeding currently. The patient is asking for some Motrin for her cramping and she is currently on her period and does have significant cramps with her period. Patient denies any significant bleeding. ROS All systems reviewed and are negative except as per history of present illness. Medications Home Meds Active Scripts Ibuprofen* (Motrin*) 800 Mg Tab, 800 MG PO Q6H PRN for PAIN AND OR ELEVATED TEM P, #30 TAB Prov:CARLOS A SIMS MD 07/20/18 Naproxen* (Naprosyn*) 500 Mg Tablet, 500 MG PO BID PRN for PAIN AND/OR INFLAMMATION, #30 TAB Prov:CRISTY COTTO PA-C 05/16/18 Hydrocodone/Acetaminophen ([place] 5-325 Tablet) 1 Each Tablet, 1 TAB PO Q6H PRN for PAIN, #7 TAB Prov:CRISTY COTTO PA-C 05/16/18 Methylprednisolone* (Medrol* DOSE PACK) 4 Mg/Dose-Pack Tab.ds.pk, 4 MG PO . DIRECTED, #1 PACKET Prov:CRISTY COTTO PA-C 05/16/18 Acetaminophen* (Tylenol*) 325 Mg Tablet, 2 TAB PO Q4 PRN for PAIN AND OR ELEVATED TEMP, #30 TAB Prov:ESTEFANY SEALS PA-C 04/26/18 Diphenhydramine Hcl* (Benadryl*) 25 Mg Cap, 25 MG PO Q6 PRN for ITCHING/RASH, #30 TAB Prov:ESTEFANY SEALS PA-C 04/26/18 Benzonatate* (Tessalon Perle*) 100 Mg Capsule, 100 MG PO Q8H PRN for COUGH, #30 CAP Prov:ESTEFANY SEALSC 04/26/18 Ibuprofen* (Motrin*) 600 Mg Tab, 600 MG PO Q6, #30 TAB Prov:KIMBERLY SMITH PA-C 02/24/18 Benzonatate* (Tessalon Perle*) 100 Mg Capsule, 100 MG PO Q8H PRN for COUGH for 15 Days, #20 CAP Prov:KIMBERLY SMITH PA-C 02/24/18 Azithromycin* (Zithromax*) 250 Mg Tablet, 250 MG PO .ZPACK DIRECTED, #6 TAB TAKE 500 MG (2 TABS) THE FIRST DAY THEN 250 MG (1 TAB) DAYS 2-5 Prov:KIMBERLY SMITH PA-C 02/24/18 Hydrocodone Bit-Acetaminophen (Hydrocodone Bit-APAP) 5-325MG Tablet, 2 TAB PO Q4H PRN for SEVERE PAIN LEVEL 7-10, #30 TAB Prov:POLA IVAN 12/26/17 Sennosides/Docusate Sodium (Dok Plus Tablet) 1 Each Tablet, 2 TAB PO BID PRN for CONSTIPATION, #60 TAB Prov:POLA IVAN 12/26/17 Reported Medications Ibuprofen* (Ibuprofen*) 600 Mg Tablet, 600 MG PO Q6H PRN for PAIN LEVEL 6-10, TAB 12/25/17 Allergies Allergies: Coded Allergies: No Known Allergy (Unverified , 06/01/17) PMhx/Soc History of Surgery: Yes ( X 3,LIZBETH) Anesthesia Reaction: Yes Hx Neurological Disorder: No Hx Respiratory Disorders: No Hx Cardiac Disorders: No Hx Psychiatric Problems: No Hx Miscellaneous Medical Probl: No Hx Alcohol Use: Yes (OCCASIONALLY) Hx Substance Use: No Hx Tobacco Use: No Smoking Status: Never smoker FmHx Family History: No diabetes Physical Exam Vitals Vital Signs Date Temp Pulse Resp B/P (MAP) Pulse Ox O2 O2 Flow FiO2 Time Delivery Rate 07/20/18 97.3 76 18 129/84 99 04:52 (99) Physical Exam General: Well developed, well nourished, no acute distress Head: Normocephalic, atraumatic. Eyes: EOM intact ENT: Moist mucous membranes, anterior nasal canal bilaterally with dryness, no active bleeding. Neck: Full ROM Respiratory: No respiratory distress Cardiovascular: Well perfused distally Abdominal: Nondistended : Deferred MSK: No edema, no unilateral swelling, 5/5 strength Neurologic: Alert and oriented, moving all extremities, normal speech, steady gait Skin: No rash, no petechia or purpura Psych: Normal mood Procedures/MDM The patient is describing anterior epistaxis that is resolved likely secondary to dry mucous membranes. The patient does not have evidence of hematemesis and she states that she did not cough or throw up any blood. The blood was related to the epistaxis. Patient is having some abdominal cramping consistent with her menstrual cycle and similar to episodes in the past when she has her menstrual cycle. Patient does not have any significant bleeding. The patient exhibits no signs or symptoms concerning for systemic coagulopathy or thrombocytopenia. I do not believe laboratory testing is necessary. Nasal mucous membrane hydration techniques were discussed with the patient. She was given Motrin and can be safely discharged. The patient does not have an identifiable emergent medical condition that warrants inpatient hospitalization at this time. The patient is deemed safe for discharge with outpatient follow-up. We discussed follow up with the patient's primary care doctor within 24 to 48 h ours as needed. We also discussed return to the emergency room for worsening symptoms or worsening condition. Outpatient referral: None required Discharge Medications: Motrin Departure Diagnosis: Primary Impression: Epistaxis Additional Impression: Dysmenorrhea Condition: Stable Patient Instructions: Epistaxis (Adult) Additional Instructions: Llame al doctor lilly swanson (Referral Sources) MAANA y trino nate RAMYA PARA DENTRO DE NATE SEMANA. Dgale a la secretaria que nosotros le instruimos hacer esta ramya.Avise o llame si browning condicin se empeora antes de la ramya. CARLOS A SIMS MD Jul 20, 2018 05:41
[2018-07-20] MEDS ORDERED: IBUPROFEN 800 MG TAB PO ONE (06:00)
== END 2018-07-20 05:48 | disposition home or self-care (01) ==
LOC: E/R 04:50
DX: R04.0 Epistaxis (principal); N94.6 Dysmenorrhea, unspecified
CPT/HCPCS: Z7502; Z7610; 99282

== ENCOUNTER 2018-09-16 16:35 | Emergency (ER) | payer OTHER ==
[~2018-09-16] VITALS: Ht 157.5 cm; Wt 79.7 kg
[~2018-09-16 16:35] MED LIST changes: +IBUP800T48 PO
[2018-09-16 16:43] VITALS: Ht 157.5 cm; Wt 79.7 kg
[2018-09-16] MEDS ORDERED: KETOROLAC 30 MG INJ IM STA (18:51)
[2018-09-16] MEDS ORDERED: NAPR-985 PO (18:58)
[2018-09-16] MEDS ORDERED: DEXAMETHASONE 10 MG/ML 1 ML INJ IM ONE (19:00)
--- NOTE | 2018-09-16 19:05 | ERD ---
ER Documentation Chief Complaint Chief Complaint back pain , lt ankle pain x 4 days , denies any trauma HPI 48-year-old female with no reported past medical surgical history who presents with complaint of mid lower back pain, left ankle pain over the past 4 days. She denies any history of falls or trauma. Symptoms began abruptly about 4 days ago. Pain of back with radiation down to right lower extremity. Denies any previous history of back pain. She denies red flag symptoms such as lower extremity paresthesias or weakness, urinary or bowel incontinence. Otherwise denies urinary symptoms such as burning, itching, frequency, vaginal bleeding or discharge. LMP August 25 reported as normal. ROS All systems reviewed and are negative except as per history of present illness. Medications Home Meds Active Scripts Prednisone* (Prednisone*) 20 Mg Tab, 40 MG PO DAILY for 4 Days, TAB Prov:EMILIA CH PA-C 09/16/18 Tramadol HCl (Tramadol HCl) 50 Mg Tablet, 50 MG PO Q6 PRN for PAIN, #20 TAB Prov:EMILIA CH PA-C 09/16/18 Naproxen* (Naprosyn*) 500 Mg Tablet, 500 MG PO BID PRN for PAIN AND/OR INFLAMMA TION, #30 TAB Prov:EMILIA CH PA-C 09/16/18 Ibuprofen* (Motrin*) 800 Mg Tab, 800 MG PO Q6H PRN for PAIN AND OR ELEVATED TEMP, #30 TAB Prov:CARLOS A SIMS MD 07/20/18 Naproxen* (Naprosyn*) 500 Mg Tablet, 500 MG PO BID PRN for PAIN AND/OR INFLAMMATION, #30 TAB Prov:CRISTY COTTO PA-C 05/16/18 Hydrocodone/Acetaminophen (Webster 5-325 Tablet) 1 Each Tablet, 1 TAB PO Q6H PRN for PAIN, #7 TAB Prov:CRISTY COTTO PA-C 05/16/18 Methylprednisolone* (Medrol* DOSE PACK) 4 Mg/Dose-Pack Tab.ds.pk, 4 MG PO . DIRECTED, #1 PACKET Prov:CRISTY COTTO PA-C 05/16/18 Acetaminophen* (Tylenol*) 325 Mg Tablet, 2 TAB PO Q4 PRN for PAIN AND OR ED VATED TEMP, #30 TAB Prov:BRIDGETADELINEALEXIESTEFANY PA-C 04/26/18 Diphenhydramine Hcl* (Benadryl*) 25 Mg Cap, 25 MG PO Q6 PRN for ITCHING/RASH, #30 TAB Prov:ARNELESTEFANY PA-C 04/26/18 Benzonatate* (Tessalon Perle*) 100 Mg Capsule, 100 MG PO Q8H PRN for COUGH, #30 CAP Prov:ESTEFANY SEALS PA-C 04/26/18 Ibuprofen* (Motrin*) 600 Mg Tab, 600 MG PO Q6, #30 TAB Prov:SARAHKIMBERLY-C 02/24/18 Benzonatate* (Tessalon Perle*) 100 Mg Capsule, 100 MG PO Q8H PRN for COUGH for 15 Days, #20 CAP Prov:KIMBERLY SMITH-C 02/24/18 Azithromycin* (Zithromax*) 250 Mg Tablet, 250 MG PO .LENACK DIRECTED, #6 TAB TAKE 500 MG (2 TABS) THE FIRST DAY THEN 250 MG (1 TAB) DAYS 2-5 Prov:KIMBERLY SMITH-C 02/24/18 Hydrocodone Bit-Acetaminophen (Hydrocodone Bit-APAP) 5-325MG Tablet, 2 TAB PO Q4H PRN for SEVERE PAIN LEVEL 7-10, #30 TAB Prov:POLA IVAN 12/26/17 Sennosides/Docusate Sodium (Dok Plus Tablet) 1 Each Tablet, 2 TAB PO BID PRN for CONSTIPATION, #60 TAB Prov:POLA IVAN 12/26/17 Reported Medications Ibuprofen* (Ibuprofen*) 600 Mg Tablet, 600 MG PO Q6H PRN for PAIN LEVEL 6-10, TA B 12/25/17 Allergies Allergies: Coded Allergies: No Known Allergy (Unverified , 06/01/17) PMhx/Soc History of Surgery: Yes ( X 3,LIZBETH) Anesthesia Reaction: Yes Hx Neurological Disorder: No Hx Respiratory Disorders: No Hx Cardiac Disorders: No Hx Psychiatric Problems: No Hx Miscellaneous Medical Probl: No Hx Alcohol Use: Yes (OCCASIONALLY) Hx Substance Use: No Hx Tobacco Use: No Smoking Status: Never smoker FmHx Family History: No diabetes, No coronary disease, No other Physical Exam Vitals Vital Signs Date Temp Pulse Resp B/P (MAP) Pulse Ox O2 O2 Flow FiO2 Time Delivery Rate 09/16/18 98.2 77 18 122/86 100 16:43 (98) Physical Exam I have reviewed the triage vital signs. Const: Well nourished, well developed, appears stated age Eyes: PERRL, no conjunctival injection HENT: NCAT, Neck supple without meningismus CV: RRR, Warm, well-perfused extremities RESP: CTAB, Unlabored respiratory effort GI: soft, non-tender, non-distended, no masses MSK: No gross deformities appreciated, no midline or paraspinal tenderness, no rashes, able to take several steps in examination room without issue Skin: Warm, dry. No rashes Neuro: grossly non focal Psych: Appropriate mood and affect. Results 24 hrs Laboratory Tests Test 09/16/18 19:03 Urine Color YELLOW Urine Clarity CLEAR Urine pH 5.0 Urine Specific [place] 1.023 Urine Ketones NEGATIVE mg/dL Urine Nitrite NEGATIVE mg/dL Urine Bilirubin NEGATIVE mg/dL Urine Urobilinogen NEGATIVE mg/dL Urine Leukocyte Esterase NEGATIVE Ninfa/ul Urine Hemoglobin NEGATIVE mg/dL Urine Glucose NEGATIVE mg/dL Urine Total Protein NEGATIVE mg/dl POC Beta HCG, Qualitative NEGATIVE Current Medications Medications Dose Sig/Kahlil Start Time Status Last (Trade) Ordered Route PRN Stop Time Admin Dose Reason Admin Ketorolac 30 mg ONCE STAT 09/16/18 DC 09/16/18 Tromethamine IM 18:51 19:12 (Toradol) 09/16/18 18:53 10 mg ONCE ONCE 09/16/18 DC 09/16/18 Dexamethasone IM 19:00 19:11 (Decadron) 09/16/18 19:01 Procedures/MDM 48-year-old female who presents with complaint of back pain with radiculopathy. Low suspicion for acute cord compression or cauda equina at this time, given presentation and symptoms, including epidural abscess or hematoma. Patient has no history of malignancy, active or distant history. Patient has no unexplained weight loss. No recent fevers, rigors, malaise, or recent infection. No history of IVDU or skin-popping. Patient does not have any history concerning for saddle anesthesia/perianal sensory loss or complaining of decreased rectal tone. Wil parmar does not have urinary retention or inability to control urine from overflow. Patient has no tenderness overlying spinous process. Patient has no focal weakness on examination. X-ray of left ankle without acute fracture dislocation likely with mild sprain. ED course: Toradol, Decadron, symptoms improve with medications Will discharge with short course of steroids, NSAIDs X-ray of left ankle without acute fracture or dislocation Given exam and history, low suspicion for cord compression, cauda equina, epidural abscess/hematoma. Distally neurovascularly intact. Query likely musculoskeletal component. Discussed pain control,and follow up with PMD. Cautious return precautions discussed w/ full understanding DISPOSITION PLAN: We discussed follow up with the patient's primary care doctor within 24 to 48 hours. Patient counseled regarding my diagnostic impression and care plan. Prior to discharge all questions answered. Pt agrees with treatment plan and understands strict return precautions. Precautionary instructions provided including instructions to return to the ER if not improving or for any worsening or changing symptoms or concerns. Disclaimer: Inadvertent spelling and grammatical errors are likely due to EHR/dictation software use and do not reflect on the overall quality of patient care. Also, please note that the electronic time recorded on this note does not necessarily reflect the actual time of the patient encounter. Departure Diagnosis: Primary Impression: Left ankle strain Additional Impression: Back pain Condition: Stable Patient Instructions: Treating Ankle Sprains, Back Pain W/ Sciatica Additional Instructions: Call your primary care doctor TOMORROW for an appointment during the next 2-3 days.See the doctor sooner or return here if your condition worsens before your appointment time. EMILIA CH PA-C September 16, 2018 19:05
[2018-09-16] MEDS ORDERED: TRAM50TA2 PO (19:08)
[2018-09-16] MEDS ORDERED: PRED20TA PO (20:08)
[2018-09-16 20:18] VITALS: BP 134/84; PULSE 70; RESP 18
== END 2018-09-16 20:20 | disposition home or self-care (01) ==
LOC: FTE 16:35
DX: S96.912A Strain of unspecified muscle and tendon at ankle and foot level, left foot, initial encounter (principal); S39.92XA Unspecified injury of lower back, initial encounter; X58.XXXA Exposure to other specified factors, initial encounter; Y92.9 Unspecified place or not applicable
CPT/HCPCS: 73610; 81003; 81025; 96372; J1100; J1885; Z7502

== ENCOUNTER 2018-12-11 21:24 | Emergency (ER) | payer OTHER ==
[~2018-12-11] VITALS: Ht 157.5 cm; Wt 83.1 kg
[~2018-12-11 21:24] MED LIST changes: +AMOX1TAB10 PO; +HC30CR25 TOP; +PRED20TA PO; +TRAM50TA2 PO
[2018-12-11 21:27] VITALS: BP 130/80; PULSE 76; RESP 16; Ht 157.5 cm; Wt 83.1 kg
== END 2018-12-11 22:56 | disposition home or self-care (01) ==
LOC: FTE 21:24
DX: S60.561A Insect bite (nonvenomous) of right hand, initial encounter (principal); S60.562A Insect bite (nonvenomous) of left hand, initial encounter; S80.861A Insect bite (nonvenomous), right lower leg, initial encounter; S80.862A Insect bite (nonvenomous), left lower leg, initial encounter; W57.XXXA Bitten or stung by nonvenomous insect and other nonvenomous arthropods, initial encounter; Y92.9 Unspecified place or not applicable
CPT/HCPCS: 99282

== ENCOUNTER 2018-12-22 12:36 | Emergency (ER) | payer OTHER ==
[~2018-12-22] VITALS: Ht 157.5 cm; Wt 82.0 kg
[2018-12-22 12:46] VITALS: BP 158/73; PULSE 87; RESP 18; Ht 157.5 cm; Wt 82.0 kg
== END 2018-12-22 13:56 | disposition home or self-care (01) ==
LOC: FTE 12:36
DX: S30.861A Insect bite (nonvenomous) of abdominal wall, initial encounter (principal); W57.XXXA Bitten or stung by nonvenomous insect and other nonvenomous arthropods, initial encounter; Y92.9 Unspecified place or not applicable
CPT/HCPCS: 99282

== ENCOUNTER 2018-12-31 06:05 | Emergency (ER) | payer OTHER ==
[~2018-12-31] VITALS: Ht 149.9 cm; Wt 82.7 kg
[2018-12-31 06:10] VITALS: BP 127/74; PULSE 76; RESP 17; Ht 149.9 cm; Wt 82.7 kg
[2018-12-31] MEDS ORDERED: DEXAMETHASONE 10 MG/ML 1 ML INJ IM ONE (06:30)
== END 2018-12-31 06:38 | disposition home or self-care (01) ==
LOC: FTE 06:05
DX: R22.0 Localized swelling, mass and lump, head (principal)
CPT/HCPCS: 96372; J1100; Z7502